=== PATIENT | female | born 1995 | race Caucasian/White ===

== ENCOUNTER 2018-08-15 20:37 | Emergency (ER) | payer OTHER ==
[2018-08-15 20:52] VITALS: BP 124/86
[2018-08-15] MEDS ORDERED: DOXYCYCLINE 100 MG PREPACK#2 BTL TAKEHOME ONE (20:56)
--- NOTE | 2018-08-15 20:58 | EDPHY ---
H & P Time Seen by Provider: 08/15/18 20:49 HPI/ROS: This patient describes moderately painful red bumps in both upper arm pits that started today after shaving her armpits yesterday. She describes 4 to 5/10 discomfort associated with redness, tenderness and describes multiple swollen bumps. She has not had this occur to her before. She notes no exacerbating factors. She has not taken any analgesics and declines any now. ROS: Constitutional: No fevers Integumentary: No rash elsewhere on her body. HEENT: No intraoral lesions GI: No nausea vomiting 5 point review of symptoms is performed and otherwise negative with exception of pertinent positives and negatives listed in HPI and ROS Smoking Status: Former smoker Physical Exam: Physical Exam Vital signs are normal. General: No acute distress HEENT: Atraumatic. Intraoral exam: No intraoral lesions. Eyes: Pupils equal and react to light. Extraocular motions are intact. Cardiac: Brisk capillary refill is intact throughout. Skin: The patient has erythematous papules in both axilla regions with warmth to touch. No fluctuant lesions. Close inspection reveals that each of these erythematous papules centered around a hair follicle. Neuro: Alert and oriented x3 with no sensorimotor deficits. Differential diagnosis: Folliculitis, contact dermatitis, nonspecific dermatitis Constitutional: Initial Vital Signs Temperature (C) 37.3 C 08/15/18 20:47 Heart Rate 97 08/15/18 20:47 Respiratory Rate 16 08/15/18 20:47 Blood Pressure 124/86 H 08/15/18 20:47 O2 Sat (%) 93 08/15/18 20:47 O2 Delivery Mode Room Air Allergies/Adverse Reactions: No Known Allergies Allergy (Verified 08/15/18 20:46) Home Medications: Medication Instructions Recorded Doxycycline Hyclate [Vibramycin 100 mg PO BID #18 cap 08/15/18 100 MG (*)] MDM/Departure - MDM Medications Given: Discontinued Medications Doxycycline Hyclate (Vibramycin 100 Mg Prepack#2) 1 btl TAKEHOME EDNOW ONE Stop: 08/15/18 20:57 Last Admin: 08/15/18 21:10 Dose: 1 btl ED Course/Re-evaluation: Findings are most consistent with a staph folliculitis. I counseled patient regarding this. Will treat with doxycycline. - Depart Disposition: Home, Routine, Self-Care Clinical Impression: Folliculitis Condition: Good Instructions: Doxycycline (By mouth), Folliculitis (ED) Additional Instructions: Diagnosis: Folliculitis Plan: Doxycycline antibiotic Drink plenty fluids when he swallows this pill Take a probiotic or yogurt while on this to prevent diarrhea. Warm packs to affected area Ibuprofen Tylenol for discomfort Return for any significant worsening despite the treatment plan. Prescriptions: Doxycycline Hyclate [Vibramycin 100 MG (*)] 100 mg PO BID #18 cap Referrals: NONE *PRIMARY CARE P,. [Primary Care Provider] - As per Instructions
== END 2018-08-15 21:16 | disposition home or self-care (01) ==
LOC: CED 20:37
DX: L73.9 Follicular disorder, unspecified (principal); Z87.891 Personal history of nicotine dependence
CPT/HCPCS: 99283-ER